=== PATIENT | male | born 2005 | race African-American/Black ===

== ENCOUNTER 2024-07-07 20:35 | Emergency (ER) | payer SELFPAY ==
[~2024-07-07] VITALS: Ht 188 cm; Wt 73.0 kg
[2024-07-07 21:08] VITALS: O2SAT 100
[2024-07-07 21:27] VITALS: BP 116/68; PULSE 88; RESP 18; TEMP 36.66960; O2SAT 99
== END 2024-07-07 22:48 | disposition left against medical advice (07) ==
LOC: ER 20:35
DX: S09.90XA Unspecified injury of head, initial encounter (principal); V49.49XA Driver injured in collision with other motor vehicles in traffic accident, initial encounter; Y93.89 Activity, other specified; Y92.89 Other specified places as the place of occurrence of the external cause; Y99.8 Other external cause status
CPT/HCPCS: 99281